=== PATIENT | male | born 1990 | race Caucasian/White ===

== ENCOUNTER 2017-12-13 16:17 | Outpatient (CLI) | payer OTHER, SELFPAY ==
[2017-12-16 11:45] LABS: HIV-1/2 Ag & Ab Screen Negative (NEGAT)
[2017-12-16 12:45] LABS: Hepatitis C Ab w Rflx HCV PCR Negative (NEGAT)
[2017-12-16 13:20] LABS: Syphilis Serology (RPR) Negative (Negative)
[2017-12-16 14:06] LABS: GC Result Negative; Specimen Description URINE
[2017-12-17 09:36] LABS: Chlamydia Result Positive
== END 2017-12-13 16:18 ==
PROVIDERS: PCP Emergency Medicine; Visit Provider Emergency Medicine
DX: Z11.3 Encounter for screening for infections with a predominantly sexual mode of transmission (principal); Z11.4 Encounter for screening for human immunodeficiency virus [HIV]; Z11.59 Encounter for screening for other viral diseases
CPT/HCPCS: 36415; 86803; 87389; 87491; 87591; 86592

== ENCOUNTER 2018-02-14 02:58 | Outpatient (CLI) | payer OTHER, SELFPAY ==
[2018-02-15 10:13] LABS: HIV-1/2 Ag & Ab Screen Negative (NEGAT)
[2018-02-17 12:40] LABS: Syphilis Serology (RPR) Negative (Negative)
== END 2018-02-14 03:18 ==
PROVIDERS: PCP Emergency Medicine; Visit Provider Emergency Medicine
DX: Z11.3 Encounter for screening for infections with a predominantly sexual mode of transmission (principal); Z11.4 Encounter for screening for human immunodeficiency virus [HIV]
CPT/HCPCS: 36415; 87389; 87491; 87591; 86592

== ENCOUNTER 2018-02-17 15:01 | Outpatient (REF) | payer OTHER, SELFPAY ==
[2018-02-18 12:40] LABS: Chlamydia Result Negative; GC Result Negative; Specimen Description URINE
== END 2018-02-17 15:21 ==
LOC: LBO 15:01
PROVIDERS: PCP Emergency Medicine; Visit Provider Emergency Medicine
DX: Z11.3 Encounter for screening for infections with a predominantly sexual mode of transmission (principal)
CPT/HCPCS: 87491; 87591